=== PATIENT | male | born 1955 | race Caucasian/White ===

== ENCOUNTER 2022-01-01 07:43 | Outpatient (CLI) | payer MEDICARE, SELFPAY ==
--- NOTE | ~2022-01-01 | CT_ITS ---
EXAMINATION: CT abdomen pelvis w con DATE: 01/01/2022 08:19 INDICATION: Left lower quadrant abdominal pain. TECHNIQUE: Computed tomography (CT) of the abdomen and pelvis was performed with 150 mL Omnipaque 350 intravenous contrast. Automated exposure control and iterative reconstruction technique were employe d. The dose-length product was 1468.28 mGy-cm. COMPARISON: CT abdomen and pelvis 04/06/2018 FINDINGS: The visualized portions of the lung bases demonstrate minimal atelectasis. No pleural effus ion. The heart size is normal. No pericardial effusion. The liver, gallbladder, spleen, pancreas, and adrenal glands are normal. There are cysts in the kidneys measuring up to 6 mm on the right. There i s extensive diverticulosis of the colon. There is mild fat stranding around sigmoid colon, consistent with diverticulitis. The appendix is normal. There are no pathologically enlarged lymph nodes. There is no free intraperitoneal fluid. The prostate is mildly enlarged. There is moderate lumbar spondylo sis. IMPRESSION: 1. Mild sigmoid diverticulosis. No perforation or abscess. Reviewed, dictated and finalized at location A.
[2022-01-01 08:05] LABS: Estimated Glomerular Filt Rate > 60
== END 2022-01-01 07:44 | disposition home or self-care (01) ==
PROVIDERS: PCP Family Medicine; Visit Provider Nurse Practitioner
DX: R10.32 Left lower quadrant pain (principal); R14.0 Abdominal distension (gaseous); R19.8 Other specified symptoms and signs involving the digestive system and abdomen; K57.30 Diverticulosis of large intestine without perforation or abscess without bleeding
CPT/HCPCS: 74177; Q9967

== ENCOUNTER 2022-03-18 06:18 | Day surgery (SDC) | payer MEDICARE, SELFPAY ==
[2022-01-23 13:21] VITALS: BMI 34.4
[2022-03-01 09:57] VITALS: BMI 34.4
[2022-03-18 06:57] VITALS: BMI 34.4
--- NOTE | 2022-03-18 07:21 | WPDANESEPPF ---
Anes - Initial Pre Proc Eval Procedure: Operation Date: 03/18/22 08:00 Proposed Procedures p Esophagogastroduodenoscopy - David Wall MD s Diagnostic Colonoscopy - David Wall MD Date/Time: 03/18/22 07:21 Surgeon: David Wall MD Pre Op Diagnosis: Abdominal Pain, Bloating and Diverticulitis Patient Data Age: 66 Gender: M Height: 1.78 m Weight: 109 kg Allergies Allergy/AdvReac Type Severity Reaction Status Date / Time Sulfa (Sulfonamide AdvReac Mild Jittery Verified 03/18/22 06:56 Antibiotics) SULFA AdvReac Intermediate Hyperactive Uncoded 03/01/22 09:53 Home Medications Medication Instructions Recorded Confirmed Type fluticasone propionate 50 1 spray intranasal DAILY 12/19/21 03/18/22 History mcg/actuation nasal spray,suspension hydrochlorothiazide 25 mg tablet 25 mg PO DAILY 12/19/21 03/18/22 History mirtazapine 15 mg tablet 15 mg PO DAILY 12/19/21 03/18/22 History rosuvastatin 10 mg tablet 10 mg PO DAILY 12/19/21 03/18/22 History sodium,potassium,mag sulfates 17.5 See Rx Instructions PO .COMPLEX 01/23/22 Rx gram-3.13 gram-1.6 gram oral soln #354 mL (Suprep Bowel Prep Kit) Patient hx anesthesia problems: none Family hx anesthesia problems: none Results Review: All pre-operative results and documents have been reviewed as part of the pre-operative evaluation. [facility] Past Medical History Medical History Allergies Anxiety Bloating Cancer of the skin, basal cell History of torsion of testis Hyperlipidemia Hypertension Kidney stones LLQ pain Tenesmus Surgical History Surgical History Hx of carpal tunnel repair Family History Family History Father Malignant neoplasm of prostate Mother Depression Thyroid disorder Social History Social History Smoking status: Former smoker Alcohol intake: never Substance use: never Substance use type: does not use Living arrangements: with family Spiritual care concerns: No Anes - Eval Final PreProcedure Day of Procedure 03/18/22 07:21 Patient weight: obese Heart: regular rate and rhythm Lungs: clear to auscultation Airway: Mallampati scale class II Neurological: alert and oriented Last oral intake: >/= 8 hours ASA classification: III Emergent: no Anesthetic plan: proceed Anesthesia type and monitoring: general GIVS and standard monitoring Results Review: All pre-operative results and documents have been reviewed as part of the pre-operative evaluation. Informed Consent: The patient's anesthetic plan and its attendant risks and benefits were discussed with the patient/family/POA. Questions were solicited and answers provided to the satisfaction of the patient/family/POA.
[2022-03-18 07:25] VITALS: BP 156/87; PULSE 77; RESP 16; TEMP 36.4; O2SAT 96
--- NOTE | 2022-03-18 07:25 | PM.HPGS ---
History of Present Illness History of Present Illness Consent: Risks, benefits, and alternatives have been discussed and questions answered. Patient agrees to proceed with procedure. Chief complaint: Abdominal Pain, Bloating and Diverticulitis Narrative: David Silva is a 66 year old male Presents for GI endoscopy. Patient complains of abdominal bloating. Because of significant abdominal bloating he was given an empiric trial of antibiotics for possible diverticulitis. A CT scan was performed which revealed no evidence of this however. Subsequently patient was given a trial of stool softeners laxatives and Pepcid and has felt greatly improved. Patient presents today for further evaluation because of concerns of ongoing bloating. Patient's family history is noncontributory. Patient denies significant abdominal pain today. Family history noncontributory. Review of Systems Review of Systems: Review of systems noncontributory. PENDING SALE TO [facility] Past Medical History Medical History Allergies Anxiety Bloating Cancer of the skin, basal cell History of torsion of testis Hyperlipidemia Hypertension Kidney stones LLQ pain Tenesmus Surgical History Surgical History Hx of carpal tunnel repair Family History Family History Father Malignant neoplasm of prostate Mother Depression Thyroid disorder Social History Social History Smoking status: Former smoker Alcohol intake: never Substance use: never Substance use type: does not use Living arrangements: with family Spiritual care concerns: No Meds Home Medications and Allergies Home Medications Medication Instructions Recorded Confirmed Type fluticasone propionate 50 1 spray intranasal DAILY 12/19/21 03/18/22 History mcg/actuation nasal spray,suspension hydrochlorothiazide 25 mg tablet 25 mg PO DAILY 12/19/21 03/18/22 History mirtazapine 15 mg tablet 15 mg PO DAILY 12/19/21 03/18/22 History rosuvastatin 10 mg tablet 10 mg PO DAILY 12/19/21 03/18/22 History sodium,potassium,mag sulfates 17.5 See Rx Instructions PO .COMPLEX 01/23/22 Rx gram-3.13 gram-1.6 gram oral soln #354 mL (Suprep Bowel Prep Kit) Allergies Allergy/AdvReac Type Severity Reaction Status Date / Time Sulfa (Sulfonamide AdvReac Mild Jittery Verified 03/18/22 06:56 Antibiotics) SULFA AdvReac Intermediate Hyperactive Uncoded 03/01/22 09:53 Exam Narrative: Physical exam reveals patient be alert. Vital signs stable. HEENT exam is unremarkable. Patient is anicteric. Lungs are clear to auscultation and percussion. Heart is without murmur or extra sounds. Abdomen is obese. Bowel sounds are present soft nontender with no hepatosplenomegaly. Digital external rectal exam is normal. Assessment and Plan Assessment and plan (1) Bloating: Code(s): R14.0 - Abdominal distension (gaseous) Status: Acute Assessment and Plan: Patient complains of abdominal bloating this concerns him a great deal. His improved somewhat on taking laxatives regularly. GI endoscopy requested will be performed further recommendations will be given after endoscopy. (2) Abdominal pain: Code(s): R10.9 - Unspecified abdominal pain Status: Acute Assessment and Plan: Patient complains rather diffuse abdominal discomfort. Most likely related to his bloating. He has had some irregularity to his bowel habits. Colonoscopy an EGD requested will be performed today.
[2022-03-18] MEDS: LACTATED RINGERS 1,000 ML 150 ML IV CONT (07:27)
[2022-03-18 08:19] VITALS: BP 118/68; PULSE 74; RESP 17; O2SAT 99
[2022-03-18 08:29] VITALS: BP 125/76; PULSE 72; RESP 16; O2SAT 99
[2022-03-18 08:39] VITALS: BP 126/82; PULSE 73; RESP 20; O2SAT 97
--- NOTE | 2022-03-18 08:44 | WPDANESPN ---
Anes - Prog Note Post-Op Date/Time: 03/18/22 08:44 Cardiovascular status: normal Respiratory status: normal Airway patency: baseline Mental status: baseline Post-Op hydration status: normal Vital Signs: Last Vital Signs Temp 36.4 C 03/18/22 07:25 Pulse 77 03/18/22 07:25 Resp 16 03/18/22 07:25 BP 156/87 H 03/18/22 07:25 Pulse Ox 96 03/18/22 07:25 O2 Del Method Room Air 03/18/22 07:25 Pain Score (VAS): 0/10 I/O: Intake & Output 03/17/22 03/18/22 03/18/22 23:59 07:59 15:59 Intake Total 400 Balance 400 Patient Feedback: Patient satisfied with anesthetic care.
== END 2022-03-18 08:55 | disposition home or self-care (01) ==
PROVIDERS: PCP Family Medicine; Visit Provider Internal Medicine Gastroenterology
PROC: 0DJ08ZZ Inspection of Upper Intestinal Tract, Via Natural or Artificial Opening Endoscopic (ICD-10-PCS; CPT 43235; principal; 2022-03-18 08:00)
PROC: 0DJD8ZZ Inspection of Lower Intestinal Tract, Via Natural or Artificial Opening Endoscopic (ICD-10-PCS; CPT 45378; 2022-03-18 08:00)
DX: R14.0 Abdominal distension (gaseous) (principal)
CPT/HCPCS: 45378; 43239

== ENCOUNTER 2025-03-04 10:08 | Emergency (ER) | payer MEDICARE, SELFPAY ==
[2025-03-04 10:17] VITALS: BP 144/66; PULSE 72; RESP 18; TEMP 36.4; O2SAT 97
--- NOTE | 2025-03-04 10:39 | ED.EYEPROB ---
HPI - Eye Problem General Chief complaint: Eye Problems Stated complaint: bump on left eye Time Seen by Provider: 03/04/25 10:25 Source: patient Mode of arrival: ambulatory Limitations: no limitations History of Present Illness HPI Narrative: Silverio is a 69-year-old male patient presenting to the clinic today with complaints of a left lower eyelid painful bump. Reports this has been going on for over 1 week but has gotten worse the last 3 days. He has not applied any medications. Denies any visual changes. Related Data Home Medications ?Medication ?Instructions ?Recorded ?Confirmed ?Last Taken ?Type polyethylene glycol 3350 17 17 g PO DAILY 06/14/22 01/04/25 Unknown History gram/dose oral powder (Miralax) naproxen sodium 220 mg capsule 220 mg PO ONCE PRN 01/04/25 01/04/25 Unknown History Allergies Allergy/AdvReac Type Severity Reaction Status Date / Time Sulfa (Sulfonamide AdvReac Mild Jittery Verified 03/04/25 10:26 Antibiotics) SULFA AdvReac Intermediate Hyperactive Uncoded 01/04/25 09:27 Review of Systems Review of Systems: Pertinent positives per HPI. Patient denies any fever, chills, rash, headache, visual changes, dizziness, cough, runny nose, sore throat, shortness of breath, chest pain, palpitations, nausea, vomiting, diarrhea, constipation, abdominal pain, or any urinary issues. [facility] Past Medical History Medical History Personal history of urinary calculi Slow urinary stream History of depression Hepatic steatosis Allergic rhinitis, unspecified Abnormal results of liver function studies Other cervical disc degeneration, unspecified cervical region Major depressive disorder, recurrent, in partial remission Hyperlipidemia, unspecified Essential (primary) hypertension Abdominal pain Tenesmus Bloating LLQ pain History of torsion of testis Kidney stones Cancer of the skin, basal cell Anxiety Allergies Surgical History Surgical History History of esophagogastroduodenoscopy (EGD) 03/17/2022 History of colonoscopy 03/17/22 Hx of carpal tunnel repair Family History Family History Father Malignant neoplasm of prostate Colon polyp Mother Depression Thyroid disorder Cerebrovascular accident Social History Social History Smoking status: Former smoker Alcohol intake: current Alcohol use details: Rarely Substance use: never Substance use type: does not use Do You Feel Safe in your Home?: Yes Lack of Transportation: No Lack of Food: Never True Current Housing: I Have Housing Concerned About Future Housing: No Difficulty Paying Gas/Electric Bills: No Difficulty Paying for Meds: No Currently Unemployed: No Education: High School Diploma/GED Difficulty w/ Childcare or Family Care: No Living arrangements: with family Occupation/Education: retired Gender identity (if verbalized by the patient): Male Sexual Orientation (if Verbalized by the Patient): Straight or Heterosexual Spiritual care concerns: No Comments At the time of my signature, I reviewed and agree with the nursing past medical, surgical, social, and family history. There is no relevant family history pertinent to the patient complaint. Exam Narrative: General: Well-developed, well nourished, in no apparent distress Head: Normocephalic, atraumatic Eyes: Pupils equally round and reactive to light bilaterally, EOM intact, sclera and conjunctive clear, no discharge, right lids normal, left upper eye lid normal, left lower lateral eye lid with pustule lesion with localized redness and tenderness to palpation Ears: TMs intact and clear, ear canals clear, no drainage, grossly hearing normal. Nose: Nares patent, no discharge, no inflammation, no sinus tenderness. Mouth: Oropharynx without lesions or masses, good dentition, MMM. Neck: Supple, trachea midline, no enlargement of anterior or posterior cervical nodes, no thyroid masses or goiter palpable. Cardio: Regular rate and rhythm, s1 and s2 normal, no murmur appreciated. Resp: Clear to auscultation bilaterally anteriorly and posteriorly, no rhonchi, rales, wheezing or rubs Course Course Emergency Course: Portions of this record may have been created with voice recognition software. Level of Care: Express Care Visit Vital Signs Vital signs: Vital Signs Temperature 36.4 C L 03/04/25 10:17 Pulse Rate 72 03/04/25 10:17 Respiratory Rate 18 03/04/25 10:17 Blood Pressure 144/66 H 03/04/25 10:17 Pulse Oximetry 97 03/04/25 10:17 Oxygen Delivery Room Air 03/04/25 10:17 Temperature 36.4 C L 03/04/25 10:17 Pulse Rate 72 03/04/25 10:17 Respiratory Rate 18 03/04/25 10:17 Blood Pressure 144/66 H 03/04/25 10:17 Pulse Oximetry 97 03/04/25 10:17 Oxygen Delivery Room Air 03/04/25 10:17 Vital signs reviewed MDM - Eye Problem MDM Narrative Medical decision making narrative: At the time of visit patient is resting comfortably on the exam table. Patient appears to be nontoxic. complaints of a left lower eyelid painful bump. Reports this has been going on for over 1 week but has gotten worse the last 3 days. He has not applied any medications. Denies any visual changes. Left lower lateral eye lid with pustule lesion with localized redness and tenderness to palpation. Plan: I suspect patient has a left lower eyelid external stye. Prescription for E-Mycin ointment was sent to the pharmacy. Warm moist compresses recommended. Follow up with eye doctor PCP in 5-7 days if symptoms persist. Supportive measures were discussed with the patient and they voiced understanding discharge instructions and agrees to treatment plan. Return precautions reviewed Differential Diagnosis Differential diagnosis: Likely corneal abrasion, conjunctivitis, acute iritis, hyphema, periorbital cellulitis, subconjunctival hemorrhage, glaucoma, corneal ulcer, ruptured globe and other (Stye) Discharge Plan Discharge Clinical Impression: External hordeolum Qualifiers: Laterality: left Eyelid: lower Qualified Code(s): H00.015 - Hordeolum externum left lower eyelid Patient Disposition: Home Condition: Stable Instructions: Antibiotic Form, Stye (ED) Additional Instructions: Apply warm moist compresses every 2-3 hours and hopefully this will abrupt on its own Keep area clean and dry Apply erythromycin ointment as prescribed May take Tylenol/Motrin as needed for pain as per bottle directions. Follow-up with your eye doctor/PCP in 5-7 days if symptoms persist or sooner if they worsen Patient Language: Kazakh Prescriptions: New erythromycin 5 mg/gram (0.5 %) ointment 0.5 inch LEFT EYE TID 7 Days Qty: 3.5 0RF No Action polyethylene glycol 3350 [Miralax] 17 gram/dose powder 17 g PO DAILY naproxen sodium 220 mg capsule 220 mg PO ONCE PRN hydrochlorothiazide 25 mg tablet 25 mg PO DAILY Qty: 100 1RF mirtazapine 15 mg tablet 15 mg PO DAILY Qty: 100 1RF rosuvastatin 20 mg tablet 20 mg PO DAILY Qty: 100 1RF fluticasone propionate 50 mcg/actuation spray,suspension 2 spray intranasal DAILY Qty: 3 1RF Rx Instructions: administer into each nostril hydrochlorothiazide 25 mg tablet 25 mg PO DAILY Qty: 90 1RF Follow-up/Referrals: Jc Yu MD [Primary Care Provider, [facility]] Time of Disposition: 10:41 Quality NIHSS Nursing Documentation ED NIHSS nursing documentation: reviewed/agree
== END 2025-03-04 10:50 | disposition home or self-care (01) ==
PROVIDERS: Emergency Provider Nurse Practitioner Family; PCP Family Medicine
DX: H00.015 Hordeolum externum left lower eyelid (principal); Z87.891 Personal history of nicotine dependence; I10 Essential (primary) hypertension; E78.5 Hyperlipidemia, unspecified; K76.0 Fatty (change of) liver, not elsewhere classified; Z85.828 Personal history of other malignant neoplasm of skin
CPT/HCPCS: 99213; G0463